=== PATIENT | female | born 1940 | race Caucasian/White ===

== ENCOUNTER 2018-07-25 22:26 | Emergency (ER) | payer OTHER, MEDICAID ==
[~2018-07-25] VITALS: Ht 162.6 cm; Wt 72.3 kg
[2018-07-26 00:34] VITALS: BP 163/81
== END 2018-07-26 00:34 | disposition home or self-care (01) ==
LOC: ED 22:26
DX: S00.03XA Contusion of scalp, initial encounter (principal); W17.89XA Other fall from one level to another, initial encounter; Y93.89 Activity, other specified; Y92.89 Other specified places as the place of occurrence of the external cause; Y99.8 Other external cause status

== ENCOUNTER 2019-01-20 16:16 | Emergency (ER) | payer OTHER, MEDICAID ==
[~2019-01-20] VITALS: Ht 162.6 cm; Wt 71.7 kg
[2019-01-20 16:32] VITALS: Ht 162.6 cm; Wt 71.7 kg
[2019-01-20 18:55] LABS: BASOPHIL % 0.4 % (0-2); PLATELET COUNT 136 x10^3mcL (130-400)
[2019-01-20 19:00] LABS: microscopic required? YES; urine erythrocyte NEGATIVE (NEGATIVE)
[2019-01-20 19:05] LABS: CARBON DIOXIDE 28.1 mmol/L (21-32); CHLORIDE SERUM 104 mmol/L (98-107); GLUCOSE SERUM 88 mg/dL (74-106); POTASSIUM SERUM 3.2 mmol/L (3.5-5.1); SODIUM SERUM 140 mmol/L (136-145)
[2019-01-20 19:09] LABS: ALBUMIN 3.9 g/dL (3.4-5.0); ALKALINE PHOSPHATASE 72 U/L (46-116); ALT/SGPT 28 U/L (14-59); AST/SGOT 22 U/L (15-37); BILIRUBIN TOTAL 0.57 mg/dL (0.20-1.00); CHOLESTEROL 165 mg/dL (<200); HDL CHOLESTEROL 58 mg/dL (40-60); TOTAL PROTEIN, SERUM 7.3 g/dL (6.4-8.2)
[2019-01-20 21:54] VITALS: BP 172/65
== END 2019-01-20 21:55 | disposition home or self-care (01) ==
LOC: ED 16:16
PROVIDERS: Emergency Medicine
DX: J45.901 Unspecified asthma with (acute) exacerbation (principal); N39.0 Urinary tract infection, site not specified; I10 Essential (primary) hypertension; E78.00 Pure hypercholesterolemia, unspecified; E03.9 Hypothyroidism, unspecified; M06.9 Rheumatoid arthritis, unspecified
CPT/HCPCS: J0456; J0696; J2930; J7030; J7050; J7060; J7613; J7644; Q0092

== ENCOUNTER 2019-05-22 17:11 | Observation (INO) | payer OTHER, MEDICAID ==
[~2019-05-22] VITALS: Ht 165.1 cm; Wt 72.3 kg
[2019-05-22 18:11] LABS: BASOPHIL % 0.3 % (0-2); PLATELET COUNT 158 x10^3mcL (130-400); RED CELL DISTRIBUTION WIDTH 16.1 % (11.5-14.5)
[2019-05-22 18:25] LABS: CALCIUM 9.6 mg/dL (8.5-10.1); CARBON DIOXIDE 22.5 mmol/L (21-32); CHLORIDE SERUM 100 mmol/L (98-107); CREATININE SERUM 1.6 mg/dL (0.6-1.0); GLUCOSE SERUM 311 mg/dL (74-106); POTASSIUM SERUM 3.1 mmol/L (3.5-5.1); SODIUM SERUM 136 mmol/L (136-145)
[2019-05-22 18:30] LABS: ALBUMIN 3.5 g/dL (3.4-5.0); ALKALINE PHOSPHATASE 70 U/L (46-116); ALT/SGPT 37 U/L (14-59); AST/SGOT 13 U/L (15-37); BILIRUBIN TOTAL 0.84 mg/dL (0.20-1.00); TOTAL PROTEIN, SERUM 6.6 g/dL (6.4-8.2)
[2019-05-22 19:20] LABS: T3 TOTAL 0.89 ng/mL
[2019-05-22 19:50] LABS: FREE T4 1.07 ng/dL (0.76-1.46); FREE THYROXINE INDEX 2.8 ug/dL (1.4-4.5)
[2019-05-22 21:34] VITALS: BP 157/72
[2019-05-22 21:43] VITALS: Ht 165.1 cm; Wt 72.3 kg
[2019-05-23 04:22] VITALS: BP 125/96
[2019-05-23 07:37] LABS: CALCIUM 9.3 mg/dL (8.5-10.1); CARBON DIOXIDE 25.7 mmol/L (21-32); CHLORIDE SERUM 104 mmol/L (98-107); CREATININE SERUM 1.2 mg/dL (0.6-1.0); GLUCOSE SERUM 229 mg/dL (74-106); MAGNESIUM 2.2 mg/dL (1.8-2.4); POTASSIUM SERUM 3.5 mmol/L (3.5-5.1); SODIUM SERUM 138 mmol/L (136-145)
[2019-05-23 08:43] VITALS: BP 117/51
[2019-05-23 12:19] VITALS: BP 123/49
[2019-05-23] MEDS ORDERED: GLUCOPHAGE XR500 MG PO (12:22)
[2019-05-23] MEDS ORDERED: METOPROLOL TART25 M1 PO (12:22)
[2019-05-23 16:43] VITALS: BP 119/50
[2019-05-23 18:22] VITALS: BP 119/50
== END 2019-05-23 19:00 | disposition home or self-care (01) ==
LOC: ED 17:11 → DU 19:19
PROVIDERS: Emergency Medicine; ADMIT Internal Medicine Pulmonary Disease
DX: I47.1 Supraventricular tachycardia (principal); I10 Essential (primary) hypertension; E11.9 Type 2 diabetes mellitus without complications; E78.5 Hyperlipidemia, unspecified; E83.42 Hypomagnesemia
CPT/HCPCS: 82962; 83880; 84439; G0378; J0153; J1650; J3475; J3490; J7030; Q0092

== ENCOUNTER 2019-12-19 19:05 | Emergency (ER) | payer OTHER, MEDICAID ==
[~2019-12-19] VITALS: Ht 165.1 cm; Wt 63.5 kg
[~2019-12-19 19:05] MED LIST: ALENDRONATE SOD70 M3 PO; AMLODIPINE BESY10 M2 PO; ATORVASTATIN CA20 M1 PO; COZAAR100 MG PO; D3 20002000 IU PO; DITROPAN XL5 MG PO; FLOVENT DI100 MCG/A1 IH; GLUCOPHAGE XR500 MG PO; HYDROCHLOROTHIA25 MG PO; LEVO-T75 MCG PO; METOPROLOL TART25 M1 PO; MINOXIDIL10 MG PO; MONTELUKAST SOD10 M1 PO; NATURE'S BLEND F1 MG PO; OYSCO 500500 M1 PO; POTASSIUM CHLO20 ME4 PO; PROAIR RES117 MCG/Ac INH; TEMAZEPAM15 MG PO; TREXALL5 MG PO; ZOL100 PO
[2019-12-19 19:10] VITALS: Ht 165.1 cm; Wt 63.5 kg
[2019-12-19 20:51] LABS: BASOPHIL % 0.3 % (0-2)
[2019-12-19 20:52] LABS: PLATELET COUNT 118 x10^3mcL (130-400); RED CELL DISTRIBUTION WIDTH 15.6 % (11.5-14.5)
[2019-12-19 21:05] LABS: ALBUMIN 4.4 g/dL (3.4-5.0); ALKALINE PHOSPHATASE 111 U/L (46-116); ALT/SGPT 28 U/L (14-59); AST/SGOT 28 U/L (15-37); BILIRUBIN TOTAL 0.6 mg/dL (0.20-1.00); C REACTIVE PROTEIN 1.6 mg/dL (<=0.9); CALCIUM 9.3 mg/dL (8.5-10.1); CARBON DIOXIDE 28.8 mmol/L (21-32); CHLORIDE SERUM 94 mmol/L (98-107); CREATININE SERUM 1.8 mg/dL (0.6-1.0); GLUCOSE SERUM 127 mg/dL (74-106); LACTIC DEHYDROGENASE (LDH) 189 U/L (100-190); SODIUM SERUM 132 mmol/L (136-145); TOTAL PROTEIN, SERUM 7.5 g/dL (6.4-8.2)
[2019-12-19 21:10] LABS: POTASSIUM SERUM 2.9 mmol/L (3.5-5.1)
[2019-12-19 22:24] LABS: microscopic required? YES; urine erythrocyte TRACE (NEGATIVE)
[2019-12-19 23:00] VITALS: BP 134/58
== END 2019-12-19 23:26 | disposition home or self-care (01) ==
LOC: ED 19:05
PROVIDERS: Emergency Medicine
DX: N39.0 Urinary tract infection, site not specified (principal); E87.6 Hypokalemia; Z20.828 Contact with and (suspected) exposure to other viral communicable diseases
CPT/HCPCS: 83880; 87804; J0696; J7060; Q0092; U0003-CS